=== PATIENT | male | born 1970 | race Caucasian/White ===

== ENCOUNTER 2016-05-02 00:12 | Emergency (ER) | payer SELFPAY ==
[~2016-05-02] VITALS: Ht 185.4 cm; Wt 90.7 kg
[2016-05-02 00:29] VITALS: BP 129/77
[2016-05-02] MEDS ORDERED: TDAP [DIPH/PERTUSSIS/TET] 0.5 ML VIAL IM ONE (00:41)
[2016-05-02] MEDS: TDAP [DIPH/PERTUSSIS/TET] 0.5 ML VIAL IM ONE (00:52)
== END 2016-05-02 01:27 | disposition left against medical advice (07) ==
LOC: ER 00:15
DX: S01.111A Laceration without foreign body of right eyelid and periocular area, initial encounter (principal); S00.81XA Abrasion of other part of head, initial encounter; F10.129 Alcohol abuse with intoxication, unspecified
CPT/HCPCS: 90715; A4606; Z7610